=== PATIENT | female | born 1975 | race Caucasian/White ===

== ENCOUNTER → 2025-03-21 | Outpatient (CLI) | payer MEDICAID, SELFPAY ==
--- NOTE | 2025-03-21 11:15 | XR_ITS ---
Examination: Screening digital mammography, bilateral Computer aided detection 3-D breast Tomosynthesis, bilateral Date and time of exam: March 21, 2025 1108 hours Compared to mammograms dating to November 13, 2019 Indication: Screening Technique: Nonmagnified MLO, CC views of the breasts to been obtained, reconstructed from 3-D Tomosynthesis images. R2 computer aided detection program utilized for evaluation of suspicious masses and/or abnormal calcifications. 3-D Tomosynthesis images obtained. Findings: The breasts are heterogeneously dense, which may obscure small masses Stable nodule with breast biopsy markers upper left breast MLO view Focal asymmetry remains inner left breast CC view Impression: BI-RADS Category 0: Incomplete: Need additional imaging evaluation Recommend bilateral breast sonography follow-up
== END | disposition home or self-care (01) ==
PROVIDERS: PCP Physician Assistant; Referring Provider Physician Assistant; Visit Provider Physician Assistant
DX: Z12.31 Encounter for screening mammogram for malignant neoplasm of breast (principal); R92.8 Other abnormal and inconclusive findings on diagnostic imaging of breast
CPT/HCPCS: 77063; 77067

== ENCOUNTER → 2025-07-16 | Outpatient (CLI) | payer MEDICAID, SELFPAY ==
--- NOTE | 2025-07-16 14:30 | XR_ITS ---
Examination: Breast ultrasound complete, bilateral Date and time of exam: July 16, 2025 1429 hours INDICATIONS: Family history breast cancer, breast biopsy performed March 04, 2021, left breast nodule 1 to 2:00 position, 1:00 nodule 2.5 x 1.4 x 2.9 cm left breast on ultrasound March 06, 2020 Technique: Real-time grayscale ultrasonographic imaging bilateral breasts, including all 4 quadrants as well as nipple retroareolar and axillary regions. Findings: Sonographic images right breast 12:00 nodule circumscribed 6 x 6 mm 12:00 nodule circumscribed 5 x 5 mm 9:00 nodule circumscribed 9 x 6 mm 11:00 nodule circumscribed 9 x 5 mm Sonographic images left breast 3:00 nodule circumscribed 9 x 8 mm 9:00 nodule circumscribed 10 x 8 mm 27 mm axillary lymph node IMPRESSION: BI-RADS Category 3: Probably benign findings One additional 6 month bilateral breast sonography follow-up is needed to document stability of multiple solid nodules described above
== END | disposition home or self-care (01) ==
PROVIDERS: PCP Physician Assistant; Referring Provider Physician Assistant; Visit Provider Physician Assistant
DX: N63.25 Unspecified lump in the left breast, overlapping quadrants (principal); N63.15 Unspecified lump in the right breast, overlapping quadrants; N63.11 Unspecified lump in the right breast, upper outer quadrant
CPT/HCPCS: 76641